=== PATIENT | female | born 1995 ===

== ENCOUNTER → 2019-05-15 | Outpatient (CLI) | payer BC ==
[2019-05-15 19:55] LABS: CALCIUM 9.8 mg/dL (8.4-10.2); CREATININE, serum 0.65 (0.52-1.25); POTASSIUM 3.9 mmol/L (3.4-5.0)
== END ==
LOC: ZCOL.LAB 17:25
PROVIDERS: Physician Assistant
DX: I10 Essential (primary) hypertension (principal)